=== PATIENT | male | born 1990 | race Two or more races ===

== ENCOUNTER 2022-01-08 15:47 | Inpatient (IN) | payer OTHER ==
[2022-01-08 17:17] VITALS: BMI 17.9
[2022-01-08] MEDS ORDERED: LOPERAMIDE HCL 2 MG CAPSULE PO PRN (20:15)
[2022-01-08] MEDS ORDERED: cloNIDine HCL 0.1 MG TABLET PO PRN (20:15)
[2022-01-08] MEDS ORDERED: MAGNESIUM HYDROX 2400MG/30ML ORAL SUSPENSION 30 ML CUP PO PRN (20:15)
[2022-01-08] MEDS ORDERED: BENZOCAINE/MENTHOL (CHLORASEPTIC ) LOZENGE MM PRN (20:15)
[2022-01-08] MEDS ORDERED: MAG HYDROX/AL HYDROX/SIMETH 30 ML UNIT-DOSE CUP PO PRN (20:15)
[2022-01-08] MEDS ORDERED: NICOTINE 10 MG CARTRIDGE (INHALER) IH PRN (20:15)
[2022-01-08] MEDS ORDERED: MAGNESIUM CITRATE 300 ML BOTTLE PO PRN (20:15)
[2022-01-08] MEDS ORDERED: methaDONE HCL 10 MG TABLET (FOR DETOX USE ONLY) PO ONE (20:15)
[2022-01-08] MEDS ORDERED: ONDANSETRON *ODT* 4 MG TABLET SL PRN (20:15)
[2022-01-08] MEDS ORDERED: BISMUTH SUBSALICYLATE 524 MG/30 ML PO PRN (20:15)
[2022-01-08] MEDS ORDERED: NALOXONE HCL (KLOXXADO) 8 MG SPRAY NS PRN (20:15)
[2022-01-08] MEDS ORDERED: DICYCLOMINE HCL 10 MG CAPSULE PO PRN (20:15)
[2022-01-08] MEDS ORDERED: ACETAMINOPHEN 325 MG TABLET (FP) PO PRN ×2 (20:15)
[2022-01-08] MEDS: hydrOXYzine PAMOATE 25 MG CAPSULE (FP) PO SCH (23:19)
[2022-01-08] MEDS: THIAMINE HCL 100 MG TABLET (FP) PO SCH (23:20)
[2022-01-08] MEDS: MELATONIN 5 MG TABLETS PO SCH (23:22)
[2022-01-08] MEDS: PRENATAL VITAMINS W/ FOLIC ACID TABLET (FP) PO SCH (23:22)
[2022-01-08] MEDS: METHOCARBAMOL 500 MG TABLET PO PRN (23:22)
[2022-01-09] MEDS: NICOTINE 21 MG/24 HOURS TOPICAL PATCH TD SCH ×2 (00:10→11:24)
[2022-01-09] MEDS: hydrOXYzine PAMOATE 25 MG CAPSULE (FP) PO SCH ×2 (06:19→11:24)
[2022-01-09] MEDS ORDERED: methaDONE HCL 10 MG TABLET (FOR DETOX USE ONLY) ONE (09:35)
[2022-01-09] MEDS: PRENATAL VITAMINS W/ FOLIC ACID TABLET (FP) PO SCH (11:24)
[2022-01-09 11:48] LABS: HEMATOCRIT 20.8 % (35.4-49); MCH 27.6 pg (25.7-33.7); MEAN PLT VOLUME 7.7 fl (7.5-11.1); PLATELET COUNT 308 10^3/uL (134-434); RBC 2.42 M/mm3 (4.00-5.60)
[2022-01-09 12:01] LABS: HEMOGLOBIN 6.7 GM/dL (11.7-16.9)
[2022-01-09 12:34] LABS: CALCIUM 7.7 mg/dL (8.5-10.1)
[2022-01-09 12:35] LABS: ALBUMIN 2.5 g/dl (3.4-5.0); BLOOD UREA NITROGEN 12.6 mg/dL (7-18)
[2022-01-09 12:38] LABS: CREATININE 0.7 mg/dL (0.55-1.3)
[2022-01-09 12:39] LABS: TOT PROT 5.1 g/dl (6.4-8.2)
[2022-01-09 12:40] LABS: BILIRUBIN,TOTAL 0.2 mg/dL (0.2-1)
[2022-01-09] MEDS ORDERED: NALOXONE HCL (KLOXXADO) 8 MG SPRAY NS PRN (13:48)
[2022-01-09] MEDS: FERROUS SO4 325 MG TABLET (FP) PO SCH (18:01)
[2022-01-09] MEDS: hydrOXYzine PAMOATE 25 MG CAPSULE (FP) PO PRN ×2 (18:01→22:45)
[2022-01-09] MEDS: METHOCARBAMOL 500 MG TABLET PO PRN (18:02)
[2022-01-09] MEDS: MELATONIN 5 MG TABLETS PO SCH (22:45)
[2022-01-09] MEDS: THIAMINE HCL 100 MG TABLET (FP) PO SCH (22:45)
[2022-01-09] MEDS: IBUPROFEN 400 MG TABLET (FP) PO PRN (22:45)
[2022-01-10] MEDS: METHOCARBAMOL 500 MG TABLET PO PRN (06:51)
[2022-01-10] MEDS: IBUPROFEN 400 MG TABLET (FP) PO PRN (06:51)
[2022-01-10] MEDS: hydrOXYzine PAMOATE 25 MG CAPSULE (FP) PO PRN (06:51)
[2022-01-10] MEDS: FERROUS SO4 325 MG TABLET (FP) PO SCH ×2 (08:34→14:19)
[2022-01-10] MEDS: NICOTINE 21 MG/24 HOURS TOPICAL PATCH TD SCH (09:50)
[2022-01-10] MEDS: PRENATAL VITAMINS W/ FOLIC ACID TABLET (FP) PO SCH (09:50)
[2022-01-10] MEDS ORDERED: methaDONE HCL 10 MG TABLET (FOR DETOX USE ONLY) PO ONE (10:00)
[2022-01-10 13:11] VITALS: BP 112/58; PULSE 69; TEMP 97.3
[2022-01-12] MEDS ORDERED: methaDONE HCL 10 MG TABLET (FOR DETOX USE ONLY) PO ONE (10:00)
== END 2022-01-10 15:05 | disposition left against medical advice (07) | DRG 770 ==
LOC: YASAS 15:47 → Y3N 17:31 → Y6N 19:06
PROVIDERS: ADMIT Allergy & Immunology; ATTEND Allergy & Immunology
PROC: HZ2ZZZZ Detoxification Services for Substance Abuse Treatment (ICD-10-PCS; principal; 2022-01-08)
DX: F11.23 Opioid dependence with withdrawal (principal); F14.20 Cocaine dependence, uncomplicated; F17.210 Nicotine dependence, cigarettes, uncomplicated; U07.1 COVID-19; R64 Cachexia; D64.9 Anemia, unspecified; Z59.02 Unsheltered homelessness; Z28.310 Unvaccinated for COVID-19
CPT/HCPCS: 36415; 80053; 85027; 86780; 87811; 93005; 93010; C9803-CS; J0735; U0003; U0005

== ENCOUNTER 2025-04-27 20:57 | Inpatient (IN) | payer OTHER ==
[2025-04-27 22:29] VITALS: BMI 20.5
[2025-04-27] MEDS ORDERED: BENZOCAINE/MENTHOL (CHLORASEPTIC ) LOZENGE MM PRN (22:41)
[2025-04-27] MEDS ORDERED: IBUPROFEN 400 MG TABLET (FP) PO PRN (22:41)
[2025-04-27] MEDS ORDERED: MAG HYDROX/AL HYDROX/SIMETH 30 ML UNIT-DOSE CUP PO PRN (22:41)
[2025-04-27] MEDS ORDERED: NICOTINE POLACRILEX 2 MG GUM BUC PRN (22:41)
[2025-04-27] MEDS ORDERED: BENZONATATE 200 MG CAPSULE PO PRN (22:41)
[2025-04-27] MEDS ORDERED: LOPERAMIDE HCL 2 MG CAPSULE PO PRN (22:41)
[2025-04-27] MEDS ORDERED: POLYETHYLENE GLYCOL (HEALTHYLAX) 3350 17 GM PACKET PO PRN (22:41)
[2025-04-27] MEDS ORDERED: DICYCLOMINE HCL 10 MG CAPSULE PO PRN (22:41)
[2025-04-27] MEDS ORDERED: NALOXONE (NARCAN) HCL 4 MG/0.1 ML SPRAY NS PRN (22:41)
[2025-04-27] MEDS ORDERED: NICOTINE POLACRILEX 2 MG LOZENGE BC PRN (22:41)
[2025-04-27] MEDS ORDERED: MAGNESIUM HYDROX 2400MG/30ML ORAL SUSPENSION 30 ML CUP PO PRN (22:41)
[2025-04-27] MEDS ORDERED: BISMUTH SUBSALICYLATE 524 MG/30 ML PO PRN (22:41)
[2025-04-27] MEDS ORDERED: ONDANSETRON *ODT* 4 MG TABLET SL PRN (22:41)
[2025-04-27] MEDS ORDERED: levETIRAcetam 500 MG TABLET (FP) PO ONE (23:25)
[2025-04-27] MEDS: levETIRAcetam 500 MG TABLET (FP) PO SCH (23:32)
[2025-04-28] MEDS: ACETAMINOPHEN 325 MG TABLET (FP) PO PRN (01:04)
[2025-04-28] MEDS: METHOCARBAMOL 500 MG TABLET PO PRN (07:41)
[2025-04-28] MEDS: PRENATAL VITAMINS W/ FOLIC ACID TABLET (FP) PO SCH (09:42)
[2025-04-28 11:45] LABS: MCHC 31.8 g/dl (32.3-36.5); MEAN CELL VOLUME 85.5 fl (79.0-92.2); MEAN PLT VOLUME 9.5 fl (9.4-12.4); RDW 13.6 % (12.0-15.6)
[2025-04-28 11:57] LABS: CO2 27.0 mmol/L (21-32); GLUCOSE,RANDOM 81.0 mg/dL (74-106)
[2025-04-28 12:00] LABS: CREATININE 1.0 mg/dL (0.55-1.3); SGOT/AST 30.0 U/L (15-37); SGPT/ALT 55.0 U/L (13-61)
[2025-04-28 12:02] LABS: TOT PROT 8.2 g/dl (6.4-8.2)
[2025-04-28 12:03] LABS: ALK PHOS 50.0 U/L (45-117)
[2025-04-28] MEDS: IBUPROFEN 600 MG TABLET (FP) PO PRN (17:36)
[2025-04-28] MEDS: guaiFENesin 600 MG TABLET.ER (FP) PO PRN (17:36)
[2025-04-28] MEDS: THIAMINE 100 MG TABLET PO SCH (22:16)
[2025-04-28] MEDS: MELATONIN 5 MG TABLETS PO SCH (22:16)
[2025-04-29] MEDS ORDERED: VITAMINS A AND D TOPICAL OINTMENT TP SCH (12:00)
[2025-04-29] MEDS: VITAMINS A AND D TOPICAL OINTMENT TP SCH (12:30)
[2025-04-29] MEDS: CLOTRIMAZOLE 1% CREAM TP SCH (13:13)
[2025-04-30] MEDS: guaiFENesin 600 MG TABLET.ER (FP) PO PRN (15:52)
[2025-05-01] MEDS: NICOTINE 21 MG/24 HOURS TOPICAL PATCH TD SCH (10:11)
[2025-05-01] MEDS: GABAPENTIN 400 MG CAPSULE PO SCH (13:28)
[2025-05-01] MEDS: P-EPHED 60MG/TRIPROLIDI 2.5MG TABLET PO PRN (22:22)
[2025-05-03 06:35] VITALS: BP 121/71; PULSE 88; RESP 17; TEMP 98.1
[2025-05-03] MEDS ORDERED: guaiFENesin 600 MG TABLET.ER (FP) PO PRN (08:32)
[2025-05-07 18:44] LABS: HCV DIAGNOSTIC IN-HOUSE W/RFLX REACTIVE (NONREACTIVE)
== END 2025-05-03 08:50 | disposition home or self-care (01) | DRG 773 ==
LOC: YASAS 20:57 → Y6N 04-28 00:02
PROVIDERS: ADMIT Neuromusculoskeletal Medicine & OMM; ATTEND Counselor Addiction (Substance Use Disorder)
PROC: HZ2ZZZZ Detoxification Services for Substance Abuse Treatment (ICD-10-PCS; principal; 2025-04-28)
DX: F11.23 Opioid dependence with withdrawal (principal); F14.20 Cocaine dependence, uncomplicated; F17.210 Nicotine dependence, cigarettes, uncomplicated; F41.9 Anxiety disorder, unspecified; G40.909 Epilepsy, unspecified, not intractable, without status epilepticus
CPT/HCPCS: 36415; 80053; 85027; 86780; 86803; 87517; 87522; 93005; 93010